=== PATIENT | female | born 1995 | race African-American/Black ===

== ENCOUNTER → 2017-05-09 | Outpatient (CLI) | payer BC ==
[~2017-05-09] MED LIST: MEDLIST
--- NOTE | 2017-05-09 15:17 | DIAGNOSTIC IMAGING REPORT ---
R WRIST MIN 3 VIEWS ROUTINE CLINICAL HISTORY: PAIN AND SWELLING OF R WRIST COMPARISON: None. DISCUSSION: The bones and joint spaces appear intact. There is no evidence of fracture, dislocation or bony disease. There is no evidence for soft tissue swelling. IMPRESSION: Negative study. The above report was generated using voice recognition software. It may contain grammatical, syntax or spelling errors. Electronically signed by: Nahum Cano M.D. 05/09/2017 3:16 PM Dictated Date/Time: 05/09/2017 3:15 PM
--- NOTE | 2017-05-09 15:18 | DIAGNOSTIC IMAGING REPORT ---
R HAND MIN 3 VIEWS ROUTINE CLINICAL HISTORY: PAIN AND SWELLING OF R WRIST COMPARISON: None. DISCUSSION: The bones and joint spaces appear intact. There is no evidence of fracture, dislocation or bony disease. There is no evidence for soft tissue swelling. IMPRESSION: Negative study. The above report was generated using voice recognition software. It may contain grammatical, syntax or spelling errors. Electronically signed by: Nahum Cano M.D. 05/09/2017 3:16 PM Dictated Date/Time: 05/09/2017 3:16 PM
== END | disposition home or self-care (01) ==
LOC: C.RAD 14:25
PROVIDERS: ATTEND Family Medicine
DX: M25.531 Pain in right wrist (principal); M25.431 Effusion, right wrist